=== PATIENT | female | born 1965 | race African-American/Black ===

== ENCOUNTER 2017-11-17 05:39 | Day surgery (SDC) | payer BC ==
[2017-11-15 15:03] VITALS: BMI 28.6
--- NOTE | 2017-11-17 08:26 | HP ---
[facility] - Chief Complaint Chief Complaint: left wrist pain History Source: Patient Limitations to Obtaining History: No Limitations - Past Medical History Allergies/Adverse Reactions: Allergies Allergy/AdvReac Type Severity Reaction Status Date / Time No Known Allergies Allergy Verified 11/17/17 07:44 ...LMP Comment: lmp> a few years ago - Current Medications Current Medications: Home Medications Medication Instructions Recorded Multivitamin [One Daily] 1 each PO DAILY 11/15/17 Satellite Physical Exam - Physical Examination Vital Signs: Vital Signs Period Temp Pulse Resp BP Sys/Landin Pulse Ox Last 24 Hr 98.1 F 85 20 136/83 99 General Appearance: Well Nourished ENT: Clear Lung: Clear to auscultation Heart: Regular rate & rhythm Breasts: Soft Abdomen: Soft Extremities: No edema Satellite Impression/Plan - Impression/Plan Impression: left Dequervain's Operative Procedure: left Dequervain's release Date to be Performed: 11/17/17
[2017-11-17] MEDS ORDERED: PROMETHAZINE HCL 25 MG/1 ML VIAL IVPUSH PRN (09:31)
[2017-11-17] MEDS ORDERED: oxyCODONE HCL 5 MG TABLET PO PRN (09:31)
[2017-11-17] MEDS ORDERED: ONDANSETRON 4 MG/2 ML VIAL IVPUSH PRN (09:31)
[2017-11-17] MEDS ORDERED: BUPIVACAINE HCL/PF 0.5% (5MG/ML) 10 ML VIAL ONE (09:41)
[2017-11-17] MEDS ORDERED: LIDOCAINE HCL 1%, 10 MG/ML (20ML VIAL) ONE (09:41)
[2017-11-17] MEDS ORDERED: LACTATED RINGERS SOLUTION 1,000 ML IV SCH (09:45)
[2017-11-17] MEDS ORDERED: MIDAZOLAM HCL 2 MG/2 ML SINGLE DOSE VIAL ONE ×2 (09:47)
[2017-11-17] MEDS ORDERED: ceFAZolin SODIUM 1 GM VIAL IVPB ONE (09:50)
[2017-11-17] MEDS ORDERED: PROPOFOL 20 ML ONE (09:51)
[2017-11-17] MEDS ORDERED: BUPIVACAINE HCL/PF 0.5% (5MG/ML) 10 ML VIAL IJ ONE (10:00)
[2017-11-17] MEDS ORDERED: LIDOCAINE HCL 1%, 10 MG/ML (50 mL VIAL) IJ ONE (10:00)
--- NOTE | 2017-11-17 10:26 | OP ---
Operative Note - Note: Operative Date: 11/17/17 Pre-Operative Diagnosis: left Dequervain's Operation: left Dequervain's release Post-Operative Diagnosis: Same as Pre-op Surgeon: Osmin Zepeda Anesthesiologist/WIRE STOCKKEEPER: Latha Cordoba MD Anesthesia: Local, MAC Specimens Removed: tendon sheath Estimated Blood Loss (mls): 0 Drains, Volume Out (mls): 0 Blood Volume Replaced (mls): 0 Fluid Volume Replaced (mls): 700 Operative Report Dictated: Yes
[2017-11-17 12:06] VITALS: BP 134/83; PULSE 78
--- NOTE | 2017-11-17 16:42 | SPEC ---
DATE OF OPERATION: 11/17/2017 PREOPERATIVE DIAGNOSIS: Left de Quervain tendinitis. POSTOPERATIVE DIAGNOSIS: Left de Quervain tendinitis. PROCEDURE: Left de Quervain release and tendon sheath excision. SURGEON: Osmin Zepeda MD ASSISTANTS: None. ANESTHESIOLOGIST: Latha Cordoba MD ANESTHESIA: MAC, local injection of 10 mL 0.50% Marcaine and 1% lidocaine mix. DRAINS: None. COMPLICATIONS: None. SPECIMEN: Tendon sheath, left wrist. BLOOD LOSS: None. BLOOD GIVEN: None. FLUID REPLACEMENT: 700 Ml INDICATION FOR PROCEDURE: This patient is a 52-year-old female with a preoperative diagnosis of a severe, recurrent left de Quervain tenosynovitis. After understanding the potential risks, complications, alternatives, and benefits of surgery versus nonsurgical treatment, patient elected to undergo this procedure. She understands there is risk of temporary or permanent paresthesias. PROCEDURE: Patient was brought to the operating room, peripheral IV placed, IV sedation given. One gram of IV Ancef was given. MAC anesthesia was induced. The tourniquet was applied to the left arm. The entire care was done under 3.8 loop magnification. The left upper extremity was prepped and draped in a sterile fashion. A longitudinal incision was marked out with a marking pen. A mix of 10 mL of 0.5% Marcaine, 1% Lidocaine were injected in and around the surgical area. The left upper extremity was then elevated, exsanguinated with an Esmarch bandage and the tourniquet inflated to 250 mmHg. A No. 15 scalpel blade was utilized to make a longitudinal incision. Subcutaneous hemostasis was achieved with a bipolar cautery. Dissection was done with a Littler scissors down to the first dorsal wrist compartment. Great care was taken to directly visualize and preserve all crossing sensory branches of the sensory nerve. Under direct visualization, the first dorsal wrist compartment was visualized and it was freed up from some adhesions with a Sterling elevator. Next, a fresh No. 15 scalpel blade was utilized to open up the first dorsal wrist compartment, starting proximally and going distally both with the No. 15 scalpel blade and also with a Littler scissors. The anatomy was seen to have multiple slips of the abductor pollicis longus and the extensor pollicis brevis was in its own tendon tunnel. This was also released and the wall between the two excised. The roof of the tunnel was excised. This was all passed off the field as specimen. The volar lip of the first dorsal wrist compartment was preserved to prevent volar subluxation. The release was completed both distally and proximally in both compartments. I was able to bring out all slips through the wound with a Ragnell retractor and there were no obvious points of compression. The area was copiously irrigated and washed out, again explored and I didn't see any other abnormal tissue and therefore closure was begun. Undyed 4-0 Vicryl was used to close the deep dermal layer. Final skin reapproximation was done with a running subcuticular 4-0 Biosyn stitch. The area was then washed and dried, covered with Steri-Strips, 4 x 4's, fluffs between the fingers, Webril and Coban used to make a thumb spica Coban splint. The tourniquet was taken down after a total tourniquet time of 17 minutes. There were no complications during the case. The patient tolerated the procedure quite well. She was put into a thumb spica splint, brought to ambulatory recovery room in stable condition. Víctor [id number]
[2017-11-17 22:07] VITALS: TEMP 97.8
--- NOTE | 2017-11-18 17:57 | PATH ---
Surgical Pathology Report Patient Name: RELL REYNOLDS [facility]. Rec. #: [id number] /Age/Gender: 1965 (Age: 52) / F Account: [id number] Location: [facility] Taken: 11/17/2017 Received: 11/17/2017 Reported: 11/18/2017 Physicians: Osmin Zepeda M.D. Specimen(s) Received TENDON SHEATH Clinical History Left Dequervains Final Diagnosis WRIST, TENDON SHEATH, LEFT, EXCISION: BENIGN DENSE FIBROCONNECTIVE TISSUE AND FIBROADIPOSE TISSUE. Electronically Signed Eleonora Robertson M.D. Gross Description Received in formalin labeled "tendon sheath left wrist," are 2 salas fragments of fibrous tissue measuring 0.5 and 1.1 cm in greatest dimension. The specimens are submitted in toto in one cassette. 11/17/201711/17/2017
== END 2017-11-17 12:07 | disposition home or self-care (01) ==
LOC: JASU-SURG 05:39
PROVIDERS: ATTEND Orthopaedic Surgery
PROC: 0LB60ZZ Excision of Left Lower Arm and Wrist Tendon, Open Approach (ICD-10-PCS; 2017-11-17)
PROC: 0LN60ZZ Release Left Lower Arm and Wrist Tendon, Open Approach (ICD-10-PCS; principal; 2017-11-17 09:00)
DX: M65.4 Radial styloid tenosynovitis [de Quervain] (principal)
CPT/HCPCS: 88304-TC; 94760